=== PATIENT | female | born 1980 ===

== ENCOUNTER 2018-01-08 17:12 | Observation (INO) ==
[2018-01-08] MEDS ORDERED: ONDANSETRON 4 MG/2 ML VIAL ONE (18:01)
[2018-01-08] MEDS ORDERED: MORPHINE 2 MG/1 ML SYRINGE ONE ×2 (18:02→20:23)
[2018-01-08] MEDS ORDERED: ONDANSETRON 4 MG/2 ML VIAL IV STA (18:03)
[2018-01-08] MEDS ORDERED: MORPHINE 2 MG/1 ML SYRINGE IV STA ×2 (18:03→20:18)
[2018-01-08] MEDS ORDERED: SODIUM CHLORIDE 0.9% 1,000 ML IV STA (18:03)
[2018-01-08 20:18] LABS: Basophils % 0.3 % (0.0-0.8); Eosinophils # 0.1 10*3/uL (0.0-0.87); Eosinophils % 0.5 % (0.00-10.9); Hematocrit 26.3 VOL% (35.7-47.0); Hemoglobin 8.6 GM/DL (12.0-16.0); Immature Granulocytes % 0.5 %; Immature Granulocytes Absolute 0.07 #; Lymphocytes # 1.8 10*3/uL (1.4-4.0); Lymphocytes % 13.4 % (21.3-54.2); Mean Corpuscular HGB Conc 32.7 GM/DL (32-36); Mean Corpuscular Hemoglobin 28 PG (27-34); Mean Platelet Volume 10.4 FL (9.6-12.0); Monocytes # 0.5 10*3/uL (0.11-0.8); Neutrophils # 10.6 10*3/uL (1.4-7.4); Neutrophils % 81.3 % (38.7-73.9); Platelet Count 216 T/CUMM (130-400); Red Blood Count 3.13 MC/CUMM (3.8-5.5); Red Cell Distribution Width 18.2 % (9.3-17.3)
[2018-01-08 20:35] LABS: PT Patient Result 10.9 SECS; Partial Thromboplastin Time 21.2 SECS (0-40)
[2018-01-08 20:38] LABS: Calcium 7.5 MG/DL (8.5-10.1); Osmolality,Calculated 281.3 MOS/KG (273-304); Potassium 3.7 MMOL/L (3.5-5.1)
[2018-01-08] MEDS ORDERED: MORPHINE 2 MG/1 ML SYRINGE IV PRN (23:18)
[2018-01-08] MEDS ORDERED: BISACODYL 10 MG SUPP RECTAL PRN (23:18)
[2018-01-08] MEDS ORDERED: PROMETHAZINE 25 MG/1 ML VIAL IM PRN (23:18)
[2018-01-08] MEDS ORDERED: SODIUM CHLORIDE 0.9% 1,000 ML IV PRN (23:18)
[2018-01-08] MEDS ORDERED: ONDANSETRON 4 MG/2 ML VIAL IV PRN (23:18)
[2018-01-08] MEDS ORDERED: MAGNESIUM HYDROXIDE SUSP 30 ML UDCUP PO PRN (23:18)
[2018-01-08] MEDS ORDERED: ACETAMINOPHEN 325 MG TABLET PO PRN (23:18)
[2018-01-08] MEDS ORDERED: oxyCODONE/ACETAMINOPHEN 5-325 MG TABLET PO PRN ×2 (23:24→23:25)
[2018-01-08] MEDS ORDERED: miSOPROStol 200 MCG TABLET PO ONE (23:27)
[2018-01-08] MEDS: MEPERIDINE 50 MG/1 ML VIAL IV PRN (23:39)
[2018-01-09] MEDS: LACTATED RINGERS 1,000 ML IV SCH ×2 (00:36→14:04)
[2018-01-09] MEDS ORDERED: ONDANSETRON 4 MG/2 ML VIAL IV PRN (03:09)
[2018-01-09] MEDS: MEPERIDINE 50 MG/1 ML VIAL IV PRN (03:20)
[2018-01-09 08:07] LABS: Basophils % 0.2 % (0.0-0.8); Eosinophils % 0.2 % (0.00-10.9); Hematocrit 27.7 VOL% (35.7-47.0); Hemoglobin 9.6 GM/DL (12.0-16.0); Immature Granulocytes % 0.5 %; Immature Granulocytes Absolute 0.06 #; Lymphocytes # 2.3 10*3/uL (1.4-4.0); Lymphocytes % 18.6 % (21.3-54.2); Mean Corpuscular HGB Conc 34.7 GM/DL (32-36); Mean Corpuscular Hemoglobin 29 PG (27-34); Mean Corpuscular Volume 84.7 FL (87-102); Mean Platelet Volume 10.6 FL (9.6-12.0); Monocytes # 0.7 10*3/uL (0.11-0.8); Monocytes % 5.7 % (1.7-12.7); Neutrophils # 9.4 10*3/uL (1.4-7.4); Neutrophils % 74.8 % (38.7-73.9); Platelet Count 166 T/CUMM (130-400); Red Blood Count 3.27 MC/CUMM (3.8-5.5); Red Cell Distribution Width 16.2 % (9.3-17.3); White Blood Count 12.6 T/CUMM (4-12)
[2018-01-09] MEDS ORDERED: DOCUSATE SODIUM 100 MG CAPSULE PO SCH (09:00)
[2018-01-09] MEDS ORDERED: OXYTOCIN/LR 30 UNIT/1,000 ML BAG IV ONE ×2 (14:49→15:31)
[2018-01-09] MEDS ORDERED: PROPOFOL 200 MG/20 ML VIAL IV ONE (15:00)
[2018-01-09] MEDS ORDERED: SEVOFLURANE 1 UNIT/15 MINUTE INH ONE (15:00)
[2018-01-09] MEDS ORDERED: DEXAMETHASONE 4 MG/1 ML VIAL ONE (15:01)
[2018-01-09] MEDS ORDERED: ONDANSETRON 4 MG/2 ML VIAL ONE (15:01)
[2018-01-09] MEDS ORDERED: fentaNYL 100 MCG/2 ML VIAL ONE (15:01)
[2018-01-09] MEDS ORDERED: MIDAZOLAM 2 MG/2 ML VIAL ONE (15:01)
[2018-01-09 19:02] VITALS: BP 126/75
== END 2018-01-09 19:30 | disposition home or self-care (01) ==
LOC: EDUNIT# → EDBD → N.ED 17:12 → N.EDINP 21:52 → INTOOBSV 21:52 → N.OB 22:31
PROVIDERS: ADMIT Obstetrics & Gynecology; ATTEND Obstetrics & Gynecology

== ENCOUNTER 2018-01-13 10:52 | Observation (INO) ==
[2018-01-14] MEDS ORDERED: SODIUM CHLORIDE 0.9% 1,000 ML IV PRN (15:42)
[2018-01-14 23:32] LABS: Hematocrit 25.6 VOL% (35.7-47.0); Hemoglobin 8.3 GM/DL (12.0-16.0)
[2018-01-15] VITALS: BP 126/72
== END 2018-01-15 02:20 | disposition home or self-care (01) ==
LOC: N.OB
PROVIDERS: ADMIT Obstetrics & Gynecology; ATTEND Obstetrics & Gynecology